=== PATIENT | female | born 1985 | race Caucasian/White ===

== ENCOUNTER 2016-05-05 12:52 | Emergency (ER) | payer OTHER ==
[2016-05-05 13:08] VITALS: BP 146/82
--- NOTE | 2016-05-05 13:33 | ED PSYCHIATRIC COMPLAINT ---
History of Present Illness General Chief Complaint: Psychiatric Related Complaint Stated Complaint: "UM IM HAVING A HARD TIME WITHDRAWLING" Source: patient, family, old records Exam Limitations: no limitations Vital Signs & Intake/Output Vital Signs & Intake/Output Vital Signs Date Time Temp Pulse Resp B/P Pulse O2 O2 Flow FiO2 Ox Delivery Rate 05/05 1308 97.6 87 20 146/82 98 Room Air Allergies Coded Allergies: NO KNOWN ALLERGIES (05/07/11) Reconcile Medications Alprazolam 1 MG TABLET 1 TAB PO BID ANXIETY Triage Note: Pt presents to ER stating she is withdrawing from her anxiety medication (Xanax). Pt states she normally takes 1mg TID. Pt states she last took her medication a few weeks ago. Pt states she felt fine at first and now over the last week she has not felt herself. Pt states she feels overwhelmed and while in the car today felt like she was having an panic attack. Pt denies SI/HI. Pt states MD couldn't prescribe them anymore and she was looking for a new doctor and didn't find one that would accept her insurance. Triage Nurses Notes Reviewed? yes Onset: Gradual Duration: week(s): (2), constant Timing: recent history Severity: mild, moderate Severity Numbers: 5 Associated Symptoms: anxiety : No Patient currently breastfeeds: No HPI: 31-year-old female presents emergency room for evaluation with her mother. Patient was on Xanax 1 mg twice a day for the past 10 years until recently when her primary care physician informed her that he can no longer prescribe these medications. She states her the past 2 weeks she has been having worsening anxiety without her medication. She attempted BuSpar without improvement. She states that she has been attempting to find a new primary care physician without success due to her insurance. She denies thoughts 1 harm her self or others declining which is "crisis when offered. Patient states she's been under increased stress at home secondary to her symptoms Past History Travel History Traveled to [place] past 21 day No Medical History Any Pertinent Medical History? see below for history Psychiatric: anxiety Surgical History Surgical History: none Psychosocial History What is your primary language Brazilian Tobacco Use: Current Daily Use Daily Tobacco Use Amount/Type: => 5 Cigarettes daily Family History Hx Contributory? No Review of Systems Review of Systems Constitutional: Reports: see HPI. All Other Systems: Reviewed and Negative Comments Review of systems: See HPI, All other systems negative. Constitutional, no chills no fever, no malaise HEENT: No visual changes no sore throat no congestion Cardiovascular: No chest pain , no palpitation , Skinno rashes, no change in skin Respiratory: No dyspnea no cough no sputum GI: No nausea no vomiting, no diarrhea : No dysuria Muscle skeletal: No joint pain,no back pain, no neck pain, Neurologic:no headache Psych: stress anxiety Heme/endocrine: No bruising no bleeding Immunology: No lymphadenopathy Physical Exam Physical Exam General Appearance: well developed/nourished, no apparent distress, alert Respiratory: normal breath sounds Neurological/Psychiatric: no motor/sensory deficits, awake, alert Appearance/Memory/Insight: appropriate appearance Behavoir/Eye Contact/Speech: cooperative Thoughts/Hallucinations: normal thought pattern, no apparent hallucination Comments: Well-developed well-nourished patient in no apparent distress. HEENT: Atraumatic, extraocular motion intact Neck: Supple, FROM, no lymphadenopathy Back: FROM, Nontender Cardiovascular: Regular rate and rhythms no murmurs rubs or gallops, Respiratory: Chest nontender.There were no bony deformities, no asymmetry. No respiratory distress. Patient speaking in full complete sentences. Breath sounds clear to auscultation bilaterally: NO W/R/R Extremities: full range of motion Neuro: Alert and oriented x3 Skin: Warm & dry;No appreciable rash on exposed skin Psych: Mood affect normal, normal memory normal judgment. SAD PERSONS Done? patient not suicidal Progress Differential Diagnosis: electrolyte abnormality, ANXIETY DEPRESSION Plan of Care: Patient is declining wishing to speak with crisis she was provided with resources for follow-up with any primary care physician as well [facility] advised return anytime sooner if any concerns answered all her questions it a couple to splint Departure Departure Time of Disposition: 1344 Disposition: HOME OR SELF CARE Condition: Stable Clinical Impression Primary Impression: Anxiety Secondary Impressions: Medication refill Referrals: Monica SON MD,JL GARRETT MD,JANETTE Stacy (PCP/Family) Additional Instructions: FOLLOW UP WITH DR SON PMRocco [facility] TOMORROW FOR FUTURE REFILLS. YOUR PRESCRIPTION WAS SENT TO [facility]. RETURN AT ANYTIME SOONER WITH ANY CONCERNS Departure Forms: Customer Survey General Discharge Information Prescriptions: Current Visit Scripts Alprazolam 1 TAB PO BID #30 TAB
[2016-05-05] MEDS ORDERED: ALPRAZOLAM1 M2 PO (13:46)
== END 2016-05-05 14:12 ==
LOC: ERH 12:52
DX: F41.9 Anxiety disorder, unspecified (principal); Z76.0 Encounter for issue of repeat prescription
CPT/HCPCS: 99281

== ENCOUNTER 2016-05-19 07:27 | Emergency (ER) | payer OTHER ==
[~2016-05-19] VITALS: Ht 154.9 cm; Wt 49.9 kg
[~2016-05-19 07:27] MED LIST: ALPRAZOLAM1 M2 PO
[2016-05-19 07:36] VITALS: BP 138/80
--- NOTE | 2016-05-19 07:56 | ED PSYCHIATRIC COMPLAINT ---
History of Present Illness General Chief Complaint: General Adult Stated Complaint: MED REFILL Source: patient Exam Limitations: no limitations Vital Signs & Intake/Output Vital Signs & Intake/Output Vital Signs Date Time Temp Pulse Resp B/P Pulse O2 O2 Flow FiO2 Ox Delivery Rate 05/19 0736 98.8 112 20 138/80 100 Room Air Allergies Coded Allergies: NO KNOWN ALLERGIES (05/07/11) Reconcile Medications Alprazolam 1 MG TABLET 1 TAB PO BID ANXIETY Alprazolam (Xanax) 1 MG TABLET 1 TAB PO BID PRN anxiety Triage Note: PT TO ED REQUESTING REFILL OF XANAX. PT'S PCP IS NO LONGER ABLE TO PRESCRIBE IT. Triage Nurses Notes Reviewed? yes Onset: Abrupt Duration: day(s):, constant Timing: single episode today Severity: mild Severity Numbers: 1 Associated Symptoms: anxiety : No Patient currently breastfeeds: No HPI: 31-year-old female history of anxiety presents to the ER requesting refill of her Xanax. She was seen here 15 days ago for the same. She has not been able to find a new primary care physician yet. She states that her anxiety has been controlled with taking her medication she took her last dose this morning. She declines wishing to speak with crisis she denies suicidal or homicidal ideation. She is otherwise without any complaints at this time no chest pain shortness of breath abdominal pain Past History Travel History Traveled to [place] past 21 day No Medical History Any Pertinent Medical History? see below for history Psychiatric: anxiety Surgical History Surgical History: none Psychosocial History What is your primary language Russian Tobacco Use: Current Daily Use Daily Tobacco Use Amount/Type: => 5 Cigarettes daily ETOH Use: denies use Illicit Drug Use: denies illicit drug use Family History Hx Contributory? No Review of Systems Review of Systems Constitutional: Reports: see HPI. All Other Systems: Reviewed and Negative Comments Review of systems: See HPI, All other systems negative. Constitutional, no chills no fever, no malaise HEENT: no sore throat no congestion Cardiovascular: No chest pain , no palpitation Skin, no rashes, no change in skin Respiratory: No dyspnea no cough GI: No nausea no vomiting, Muscle skeletal: No joint pain, no joint swelling, no back pain Neurologic: no headache Psych: No stress anxiety no depression,. Heme/endocrine: No bruising no bleeding Immunology: No lymphadenopathy Physical Exam Physical Exam General Appearance: well developed/nourished, alert, awake Neurological/Psychiatric: no motor/sensory deficits, awake, alert, normal mood/ affect Comments: Well-developed well-nourished patient in no apparent distress. HEENT: Atraumatic, extraocular motion intact Neck: Supple, FRO Back: FROM Cardiovascular: Regular rate and rhythms no murmurs rubs or gallops, Respiratory: Chest nontender.There were no bony deformities, no asymmetry. No respiratory distress. Patient speaking in full complete sentences. Breath sounds clear to auscultation bilaterally: NO W/R/R Extremities: full range of motion Neuro: Alert and oriented x3 Skin: Warm & dry;No appreciable rash on exposed skin Psych: Mood affect normal, normal memory normal judgment. SAD PERSONS Done? patient not suicidal Progress Differential Diagnosis: ANXIETY AND INSOMNIA DEPRESSION BIPOLAR Plan of Care: I had an extensive conversation regarding need for close follow up with primary care physician this week as well as return precautions. I answered all of their questions, they feel comfortable with the plan and follow-up care. I discussed with the patient that we cannot continue to provide her relief refills of this medication I discussed the medications that they will receive with the patient. I gave them signs and symptoms that could indicate an adverse reaction. I have advised them to limit their activities until they can see how they respond to the medication. Departure Departure Time of Disposition: 800 Disposition: HOME OR SELF CARE Condition: Stable Clinical Impression Primary Impression: Medication refill Referrals: HUY MACK,JL GARRETT MD,JANETTE Stacy (PCP/Family) Additional Instructions: follow up as discussed with [facility]. xanax as directed- this was sent to [facility]. this er will not be able to continue to provide you with refills of this medication. Departure Forms: Customer Survey General Discharge Information Prescriptions: Current Visit Scripts Alprazolam (Xanax) 1 TAB PO BID PRN anxiety #14 TAB
[2016-05-19] MEDS ORDERED: XANAX1 M1 PO (08:02)
== END 2016-05-19 08:09 ==
LOC: ERH 07:27
DX: Z76.0 Encounter for issue of repeat prescription (principal)
CPT/HCPCS: 99281